=== PATIENT | female | born 1950 | race Caucasian/White ===

== ENCOUNTER → 2023-07-08 09:20 | Outpatient (REF) | payer MEDICARE, SELFPAY | LOC: WDC 09:20 | PROVIDERS: ATTENDING PHYSICIAN Family Medicine | DX: N64.4 Mastodynia (principal); N63.10 Unspecified lump in the right breast, unspecified quadrant; N63.11 Unspecified lump in the right breast, upper outer quadrant; N63.12 Unspecified lump in the right breast, upper inner quadrant | CPT/HCPCS: 76642; 77062; 77066 ==

== ENCOUNTER → 2023-07-14 07:46 | Outpatient (REF) | payer MEDICARE, SELFPAY ==
--- NOTE | 2023-07-14 14:43 | OID.BR.INTR ---
ALEKSANDRD Breast Navigator - Initial
- -
Date of Contact: 07/14/23
Met with patient. Patient given written information on navigator services available at [facility]. Will follow up as needed per protocol.
== END ==
LOC: WDC 07:46
PROVIDERS: ATTENDING PHYSICIAN Family Medicine
DX: N63.10 Unspecified lump in the right breast, unspecified quadrant (principal); N63.11 Unspecified lump in the right breast, upper outer quadrant
CPT/HCPCS: 88305; 19083; 77065; 88341; 88360; A4648

== ENCOUNTER → 2023-07-27 16:33 | Outpatient (REF) | payer MEDICARE, SELFPAY | LOC: MRI 3T 16:33 | PROVIDERS: ATTENDING PHYSICIAN Surgery; FAMILY PHYSICIAN Family Medicine | DX: C50.411 Malignant neoplasm of upper-outer quadrant of right female breast (principal); C50.919 Malignant neoplasm of unspecified site of unspecified female breast | CPT/HCPCS: 77049; A9585 ==

== ENCOUNTER → 2023-07-29 08:38 | Outpatient (REF) | payer MEDICARE, SELFPAY | LOC: RAD 08:38 | PROVIDERS: ATTENDING PHYSICIAN Surgery; FAMILY PHYSICIAN Family Medicine | DX: C50.411 Malignant neoplasm of upper-outer quadrant of right female breast (principal); C50.919 Malignant neoplasm of unspecified site of unspecified female breast | CPT/HCPCS: 78306; A9503 ==

== ENCOUNTER → 2023-08-18 16:33 | Outpatient (REF) | payer MEDICARE, SELFPAY | LOC: OIDL 16:33 | PROVIDERS: ATTENDING PHYSICIAN Internal Medicine Hematology & Oncology | DX: C50.911 Malignant neoplasm of unspecified site of right female breast (principal) | CPT/HCPCS: 82533 ==

== ENCOUNTER → 2023-09-22 15:47 | Outpatient (REF) | payer MEDICARE, SELFPAY ==
[2023-09-22 10:03] LABS: Free T3 2.99 pg/ml (2.77-5.27); Free T4 1.11 ng/dl (0.78-2.19)
== END ==
LOC: OIDL 15:47
PROVIDERS: ATTENDING PHYSICIAN Internal Medicine Hematology & Oncology
DX: C50.911 Malignant neoplasm of unspecified site of right female breast (principal); Z79.899 Other long term (current) drug therapy
CPT/HCPCS: 84439; 84443; 84481

== ENCOUNTER → 2023-10-20 09:50 | Outpatient (REF) | payer MEDICARE, SELFPAY ==
[2023-10-20 11:00] LABS: Hematocrit 32.3 % (37.0-47.0); Hemoglobin 10.8 g/dL (12.0-16.0); Mean Corp Hgb Conc. 33.4 g/dL (33.0-37.0); Mean Corpuscular Hgb 32.8 pg (27.0-31.0); Mean Corpuscular Volume 98.2 fL (81.0-99.0); Mean Platelet Volume 9.6 fL (7.4-10.4); Nucleated Red Blood Cells % 0.2 %; Platelet Count 326 10^3/uL (130-400); Red Blood Cell Count 3.29 10^6/uL (4.20-5.40); Red Cell Dist. Width 15.6 % (11.5-14.5); White Blood Cell Count 18.2 10^3/uL (4.8-10.8)
[2023-10-20 11:38] LABS: Absolute Neutrophils -Man Diff 15.2 10^3/uL (1.4-6.5); Band Neutrophils 11 % (0-3); Segmented Neutrophils 73 % (42-75)
[2023-10-20 11:39] LABS: Lymphocytes 9 % (20-51); Metamyelocytes 1 % (-); Monocytes 3 % (2-9); Myelocytes 3 % (-); Normal RBC Morphology No; Platelets Checked YES
[2023-10-20 11:41] LABS: Anisocytosis Slight; Macrocytosis Slight; Ovalocytes FEW
[2023-10-20 11:42] LABS: Total Cells Counted 100
[2023-10-20 12:26] LABS: ALT (SGPT) 19 U/L (0-35); AST (SGOT) 26 U/L (14-36); Albumin 4.3 g/dl (3.5-5.0); Alkaline Phosphatase 138 U/L (38-126); Blood Urea Nitrogen 10 mg/dl (7-17); Calcium 9.7 mg/dl (8.4-10.2); Carbon Dioxide 29 mmol/L (22-30); Chloride 103 mmol/L (98-107); Glucose 75 mg/dl (70-99); Potassium 4.2 mmol/L (3.5-5.1); Sodium 140 mmol/L (135-145); Total Bilirubin 0.2 mg/dl (0.2-1.3); Total Protein 6.8 g/dl (6.3-8.2); eGFR > 60.00
== END ==
LOC: REG 09:50
PROVIDERS: ATTENDING PHYSICIAN Internal Medicine Hematology & Oncology; FAMILY PHYSICIAN Family Medicine
DX: C50.911 Malignant neoplasm of unspecified site of right female breast (principal); Z01.812 Encounter for preprocedural laboratory examination
CPT/HCPCS: 36415; 80053; 85025

== ENCOUNTER → 2023-10-26 10:30 | Outpatient (REF) | payer MEDICARE, SELFPAY ==
[2023-10-26 11:39] LABS: % Basophils 1.3 % (0-2); % Eosinophils 0.3 % (0-6); % Immature Granulocytes 1.3 % (0-0.5); % Monocytes 7.9 % (1.7-9.3); % Neutrophils 56.2 % (42.2-75.2); Absolute Lymphocytes 1.1 10^3/uL (1.2-3.4); Absolute Monocytes 0.3 10^3/uL (0.1-0.6); Absolute Neutrophils 1.8 10^3/uL (1.4-6.5); Hematocrit 31.1 % (37.0-47.0); Hemoglobin 10.8 g/dL (12.0-16.0); Mean Corp Hgb Conc. 34.7 g/dL (33.0-37.0); Mean Corpuscular Hgb 33.6 pg (27.0-31.0); Mean Corpuscular Volume 96.9 fL (81.0-99.0); Mean Platelet Volume 9.8 fL (7.4-10.4); Nucleated Red Blood Cells % 0 %; Platelet Count 270 10^3/uL (130-400); Red Blood Cell Count 3.21 10^6/uL (4.20-5.40); Red Cell Dist. Width 15.4 % (11.5-14.5); White Blood Cell Count 3.2 10^3/uL (4.8-10.8)
[2023-10-26 11:46] LABS: ALT (SGPT) 18 U/L (0-35); AST (SGOT) 22 U/L (14-36); Albumin 4.1 g/dl (3.5-5.0); Alkaline Phosphatase 93 U/L (38-126); Blood Urea Nitrogen 18 mg/dl (7-17); Calcium 9.9 mg/dl (8.4-10.2); Carbon Dioxide 28 mmol/L (22-30); Chloride 104 mmol/L (98-107); Glucose 91 mg/dl (70-99); Potassium 4.5 mmol/L (3.5-5.1); Sodium 140 mmol/L (135-145); Total Bilirubin 0.6 mg/dl (0.2-1.3); Total Protein 6.7 g/dl (6.3-8.2); eGFR > 60.00
[2023-10-26 12:00] LABS: Free T4 1.06 ng/dl (0.78-2.19)
[2023-10-26 12:14] LABS: TSH 1.66 uIU/ml (0.47-4.68)
[2023-10-28 22:14] LABS: Total T3 (Sendout) 98 ng/dL (80-200)
== END ==
LOC: REG 10:30
PROVIDERS: ATTENDING PHYSICIAN Internal Medicine Hematology & Oncology; FAMILY PHYSICIAN Family Medicine
DX: C50.911 Malignant neoplasm of unspecified site of right female breast (principal); Z01.812 Encounter for preprocedural laboratory examination; R10.84 Generalized abdominal pain; Z79.899 Other long term (current) drug therapy
CPT/HCPCS: 36415; 80053; 84439; 84443; 84480; 85025

== ENCOUNTER → 2023-11-10 16:47 | Outpatient (REF) | payer MEDICARE, SELFPAY | LOC: RCS 16:47 | PROVIDERS: ATTENDING PHYSICIAN Nurse Practitioner Adult Health; FAMILY PHYSICIAN Family Medicine | DX: C50.911 Malignant neoplasm of unspecified site of right female breast (principal); Z01.812 Encounter for preprocedural laboratory examination; R10.84 Generalized abdominal pain | CPT/HCPCS: 93306 ==

== ENCOUNTER → 2024-01-26 16:16 | Outpatient (REF) | payer MEDICARE, SELFPAY | LOC: MRI 3T 16:16 | PROVIDERS: ATTENDING PHYSICIAN Internal Medicine Hematology & Oncology; FAMILY PHYSICIAN Family Medicine | DX: C50.911 Malignant neoplasm of unspecified site of right female breast (principal); Z01.812 Encounter for preprocedural laboratory examination; R10.84 Generalized abdominal pain; Z79.899 Other long term (current) drug therapy | CPT/HCPCS: 77049; A9585 ==